=== PATIENT | female | born 1985 | race Caucasian/White ===

== ENCOUNTER 2018-01-12 00:43 | Emergency (ER) | payer MEDICAID ==
[~2018-01-12] VITALS: Ht 165.1 cm; Wt 73.0 kg
[~2018-01-12 00:43] MED LIST: PREN-127
[2018-01-12 02:19] LABS: BASOPHILS % 0.4 % (0.0-2.0); EOSINOPHILS % 4.3 % (0.0-5.0); HEMATOCRIT. 34.3 % (36.0-48.0); HEMOGLOBIN. 11.7 g/dL (12.0-16.0); MEAN CORPUSCULAR HEMOGLOBIN 31.1 pg (28.0-32.0); MEAN CORPUSCULAR VOLUME 90.7 fL (81.0-99.0); MEAN PLATELET VOLUME 8.2 fl (7.4-10.4); MONOCYTES % 7.4 % (2.0-8.0); NEUTROPHILS % 61.9 % (40.0-76.0); PLATELET 334 x1000/uL (130-400); RED BLOOD CELL COUNT 3.78 mill/uL (4.2-5.4); RED CELL DISTRIBUTION WIDTH 12.9 % (11.6-14.6)
[2018-01-12 02:23] LABS: PROTHROMBIN TIME 10.9 sec (9.4-11.6)
[2018-01-12 02:26] LABS: CHLORIDE 111 mEq/L (98-107)
[2018-01-12 06:24] VITALS: BP 100/68
== END 2018-01-12 06:26 | disposition home or self-care (01) ==
LOC: ER 00:48 → CANBEDREQ 08:54
DX: R07.9 Chest pain, unspecified (principal)
CPT/HCPCS: 36415; 71045; 80053; 81025; 83880; 84484; 85025; 85610; 93005; 99285; Z7610

== ENCOUNTER 2018-01-29 16:16 | Emergency (ER) | payer MEDICAID ==
[~2018-01-29] VITALS: Ht 172.7 cm; Wt 73.0 kg
[2018-01-29 16:21] VITALS: BP 120/80
== END 2018-01-29 20:09 | disposition left against medical advice (07) ==
LOC: ER 16:44
DX: R53.1 Weakness (principal); Z53.21 Procedure and treatment not carried out due to patient leaving prior to being seen by health care provider